=== PATIENT | female | born 1980 | race Caucasian/White ===

== ENCOUNTER 2016-11-16 13:57 | Emergency (ER) | payer SELFPAY ==
--- NOTE | ~2016-11-16 | ER ---
[facility] 36 [facility] [address] ROOM: [place] [address] LOCATION: ED ADMIT DATE: 11/16/2016 ER/Outpatient Report DISCHARGE DATE: 11/16/2016 FAMILY PHYSICIAN: Gregory Wetzel MD ATTENDING PHYSICIAN: Mark Barillas TIME OF ARRIVAL: 1357. TIME OF EVALUATION: 1410. CHIEF COMPLAINT: Chest pain. HISTORY OF PRESENT ILLNESS: The patient is a 36-year-old female who presents to the emergency department today with a chief complaint of chest pain. She reports this started about 6 hours prior to arrival. She reports she was seen one day prior at [facility]. They felt like she could not burp and I gave her a GI cocktail with complete resolution. She reports it hurts to eat. It is worse with food. It is pressure and sharp, it is also burning. It does go into the mid epigastric region. She has had some nasal congestion as well. She denies any shortness of breath. No diaphoresis. No fevers or chills. Does have some nausea. No vomiting. Mild shortness of breath. Does report history ulcers, feels similar to that. She was started on sucralfate. PAST MEDICAL HISTORY: Hypertension, dyslipidemia, history of ulcers. PAST SURGICAL HISTORY: Left knee, tonsils. SOCIAL HISTORY: The patient denies any tobacco use. Reports rare alcohol use. Denies illicit drug use. ALLERGIES: SEASONAL. MEDICATIONS: Please see list. PRIMARY CARE DOCTORS: Gregory Wetzel MD. REVIEW OF SYSTEMS: All systems are reviewed by myself and negative with the exception of those [facility]GE[facility] 36 Y [address] ROOM: [place] [address] LOCATION: ED ADMIT DATE: 11/16/2016 ER/Outpatient Report DISCHARGE DATE: 11/16/2016 FAMILY PHYSICIAN: Gregory Wetzel MD ATTENDING PHYSICIAN: Mark Barillas discussed in HPI and past medical history. PHYSICAL EXAMINATION: VITAL SIGNS: Weight 117 kg, blood pressure 186/84, pulse 79, respiratory rate 20, temperature 98.4, oxygen saturation 98% on room air. GENERAL: The patient is a 36-year-old female, well developed, well nourished, in no acute distress at this time. HEENT: Head normocephalic, atraumatic. Pupils are equal, round, and reactive to light. Oropharynx is clear. NECK: Supple. There is no nuchal rigidity. CARDIOVASCULAR: Regular rate and rhythm. No murmurs, rubs, or gallops. LUNGS: Clear to auscultation bilaterally. No wheezes, rales, or rhonchi. ABDOMEN: Soft, nontender, and nondistended. No rebound, rigidity, or guarding. MUSCULOSKELETAL: The patient moves all 4 extremities. SKIN: Warm and dry without rashes or lesions noted. LABORATORY DATA AND X-RAYS: EKG is obtained, is interpreted by myself at 1422 hours, shows sinus rhythm with a rate 88, normal axis, normal interval. No ST elevation, ST depression, T-wave inversions. Two-view chest x-ray shows no acute process. CBC is normal. CMP is unremarkable except for potassium 3.3. LFTs normal. Magnesium is normal. Coags are normal. Cardiac enzymes are normal. CK and CK-MB is normal. H pylori is positive. D-dimer is normal. IMPRESSION: 1. Helicobacter pylori positive gastritis. 2. Acute nonsurgical midepigastric abdominal pain. 3. Chest pain. 4. Initial visit. EMERGENCY DEPARTMENT COURSE: The patient brought back to the examination room. Seen and evaluated by myself. IV is established. Laboratory analysis and imaging are obtained as described above. The patient is given a liter of normal saline IV. She is given 4 mg of Zofran IV. She is also given a GI cocktail p.o. This does result in complete resolution of the patient's symptoms. The patient is positive for H pylori. With the patient's history and physical, I have recommended treating the patient a triple therapy including clarithromycin, amoxicillin, the patient is also on pantoprazole ready. I have continued recommending using sucralfate. I have also discussed using MiraLAX as needed. I have strongly recommended the patient follows up with the factory maintenance technician for endoscopy. She is to call for an appointment. I have also asked she follows up with Dr. Wetzel in 2 days for re-evaluation. I have discussed return to care instructions including worsening symptoms or other concerns to PATIENT'S NAME: GABI TAVERAS [facility] AGE: 36 Y [address] ROOM: [place] [address] LOCATION: [facility] ADMIT DATE: 11/16/2016 ER/Outpatient Report DISCHARGE DATE: 11/16/2016 FAMILY PHYSICIAN: Gregory Wetzel MD ATTENDING PHYSICIAN: Mark Barillas return to the emergency department as soon as possible. The patient is agreeable without further questions at this time. DISPOSITION: The patient is discharged to home in good condition. DO JAKE LUX/mireyal /[id number] d: 11/16/16 1731 t: 11/17/16 1104, OUTPATIENT REPORT
[2016-11-16 14:54] LABS: BASOPHIL % 0.5 %; EOSINOPHIL # 0.2 K/uL (0.0-0.5); EOSINOPHIL % 1.7 %; HEMATOCRIT 43.6 % (33.0-46.0); HEMOGLOBIN 14.4 g/dL (11.0-15.0); IMMATURE GRANULOCYTE % 0.2 %; LYMPHOCYTE # 2.2 K/uL (0.8-4.0); LYMPHOCYTE % 25.2 %; MCH 28.4 pg (27.0-34.0); MONOCYTE # 0.6 K/uL (0.0-1.0); MONOCYTE % 6.5 %; MPV 11.4 fl (9.4-12.4); NEUTROPHIL # (ANC) 5.7 K/uL (1.8-7.8); NEUTROPHIL % 65.9 %; NRBC % 0 /100WBC (0-0.00); PLATELET COUNT 200 K/uL (150-450); RBC 5.07 M/uL (3.50-5.50); RDW-CV 13.1 % (11.9-14.6); WBC 8.6 K/uL (4.0-11.0)
[2016-11-16 15:03] LABS: INR - (THERAPEUTIC) 0.92 (0.92-1.07); PROTIME 9.6 SECONDS (9.8-11.4); PTT 28 SECONDS (25-32)
[2016-11-16 15:13] LABS: ALBUMIN 3.5 gm/dL (3.5-5.0); ALK PHOS 70 IU/L (33-138); ALT 22 IU/L (12-78); ANION GAP 13.3 (10.0-19.0); AST 20 IU/L (10-40); BLOOD UREA NITROGEN 8 mg/dL (6-24); CALCIUM 8.6 mg/dL (8.5-10.5); CHLORIDE 106 mMol/L (96-110); CO2 25 mMol/L (22-32); CPK 40 IU/L (21-215); CREATININE 0.7 mg/dL (0.5-1.1); ESTIMATED GFR (MDRD EQUATION) > 60; MAGNESIUM 2.2 mg/dL (1.8-2.6); POTASSIUM 3.3 mMol/L (3.7-5.1); SODIUM 141 mMol/L (135-145); TOTAL BILIRUBIN 1.2 mg/dL (0.0-1.5); TOTAL PROTEIN 7.2 g/dL (6.0-8.4)
== END 2016-11-16 16:10 | disposition disaster alternative care site (69) ==
LOC: GMED 13:57
PROVIDERS: Emergency Medicine
DX: K29.70 Gastritis, unspecified, without bleeding (principal); B96.81 Helicobacter pylori [H. pylori] as the cause of diseases classified elsewhere; R10.13 Epigastric pain; R07.9 Chest pain, unspecified; I10 Essential (primary) hypertension; E78.5 Hyperlipidemia, unspecified; Z91.09 Other allergy status, other than to drugs and biological substances; Z98.890 Other specified postprocedural states; Z79.899 Other long term (current) drug therapy
CPT/HCPCS: J2405; J7030